=== PATIENT | female | born 1950 | race Caucasian/White ===

== ENCOUNTER 2020-05-25 07:07 | Inpatient (IN) ==
[2020-05-25 08:53] LABS: ABS Lymphocytes 0.9 10^3/ul (1.0-4.8); ABS Monocytes 0.3 10^3/ul (0-0.8); ABS Neutrophils 3.6 10^3/ul (1.5-7.7); Hematocrit 39 % (35-47); Lymphocyte % 18.9 %; Mean Corpuscular HGB Conc 33 g/dL (31-36); Mean Corpuscular Hemoglobin 32 pg (27-31); Mean Corpuscular Volume 95 fL (80-97); Mean Platelet Volume 7.7 fL (7.4-10.4); Nucleated Red Blood Cells % 0.1; Platelet Count 362 10^3/uL (150-450); Red Cell Distribution Width 14 % (10-15); White Blood Count 4.8 10^3/uL (3.5-10.8)
[2020-05-25] MEDS ORDERED: Albuterol HFA INHALER 8 gm MDI INH PRN (09:06)
[2020-05-25 09:10] LABS: Albumin 3.5 g/dL (3.2-5.2); Albumin/Globulin Ratio 1.2 (1-3); BUN/Creatinine Ratio 19.3 (8-20); C Reactive Protein 11.34 mg/L (<8.01); Calcium 8.3 mg/dL (8.6-10.3); EGFR Non-African American 105.8 (>60); Globulin 2.9 g/dL (2-4); Magnesium 1.9 mg/dL (1.9-2.7); Potassium 3.8 mmol/L (3.5-5.0); Total Bilirubin 0.3 mg/dL (0.2-1.0); Total Protein 6.4 g/dL (6.4-8.9)
[2020-05-25] MEDS ORDERED: Albuterol HFA INHALER 8 gm MDI INH SCH (10:00)
[2020-05-25] MEDS: Enoxaparin 40 MG/0.4 ML SYR SUBCUT SCH (12:10)
[2020-05-25] MEDS ORDERED: REMDESIVIR 200 MG IV ONE (14:30)
[2020-05-25] MEDS ORDERED: [UNRECOGNIZED DRUG - OTHER] IV ONE (14:30)
[2020-05-25] MEDS ORDERED: Benzocaine/Menthol LOZ PO PRN (18:20)
[2020-05-25] MEDS: Albuterol HFA INHALER 8 gm MDI INH PRN ×2 (18:46→21:32)
[2020-05-26 07:13] LABS: ABS Lymphocytes 1.6 10^3/ul (1.0-4.8); ABS Monocytes 0.9 10^3/ul (0-0.8); ABS Neutrophils 7.5 10^3/ul (1.5-7.7); Hematocrit 36 % (35-47); Hemoglobin 12.3 g/dL (12.0-16.0); Lymphocyte % 16.1 %; Mean Corpuscular HGB Conc 35 g/dL (31-36); Mean Corpuscular Hemoglobin 32 pg (27-31); Mean Corpuscular Volume 94 fL (80-97); Mean Platelet Volume 8.1 fL (7.4-10.4); Platelet Count 373 10^3/uL (150-450); Red Blood Count 3.81 10^6 /uL (3.70-4.87); Red Cell Distribution Width 14 % (10-15); White Blood Count 10.1 10^3/uL (3.5-10.8)
[2020-05-26 07:45] LABS: Albumin 3.3 g/dL (3.2-5.2); Calcium 8.3 mg/dL (8.6-10.3); Potassium 3.9 mmol/L (3.5-5.0); Total Bilirubin 0.4 mg/dL (0.2-1.0)
[2020-05-26 07:51] LABS: Albumin/Globulin Ratio 1.2 (1-3); BUN/Creatinine Ratio 20.7 (8-20); EGFR African American 125.5 (>60); EGFR Non-African American 103.7 (>60); Globulin 2.7 g/dL (2-4)
[2020-05-26] MEDS: Enoxaparin 40 MG/0.4 ML SYR SUBCUT SCH (09:47)
[2020-05-26] MEDS ORDERED: guaiFENesin/CODIENE 100mg/10mg 5 ML UDC PO PRN (10:18)
[2020-05-26] MEDS ORDERED: Iohexol 350 (CONTRAST) 500 ML MDV IV ONE (10:33)
[2020-05-26] MEDS ORDERED: Remdesivir 100 mg Vial 100 MG in NS 0.9% 250 ml 230 ML IV SCH ×2 (12:45→21:00)
[2020-05-26] MEDS ORDERED: Enoxaparin 40 MG/0.4 ML SYR SUBCUT ONE (14:19)
[2020-05-26] MEDS ORDERED: Enoxaparin 80 MG/0.8 ML SYR SUBCUT SCH ×2 (15:00→21:00)
[2020-05-26] MEDS ORDERED: Enoxaparin 40 MG/0.4 ML SYR SUBCUT SCH (22:00)
[2020-05-27] MEDS: Enoxaparin 80 MG/0.8 ML SYR SUBCUT SCH ×2 (02:19→16:01)
[2020-05-27 08:06] LABS: ABS Lymphocytes 2.3 10^3/ul (1.0-4.8); ABS Monocytes 1.3 10^3/ul (0-0.8); ABS Neutrophils 5.1 10^3/ul (1.5-7.7); Hematocrit 35 % (35-47); Hemoglobin 12.1 g/dL (12.0-16.0); Lymphocyte % 26.8 %; Mean Corpuscular HGB Conc 35 g/dL (31-36); Mean Corpuscular Hemoglobin 32 pg (27-31); Mean Corpuscular Volume 94 fL (80-97); Mean Platelet Volume 8.4 fL (7.4-10.4); Nucleated Red Blood Cells % 0.1; Platelet Count 372 10^3/uL (150-450); Red Blood Count 3.73 10^6 /uL (3.70-4.87); Red Cell Distribution Width 14 % (10-15); White Blood Count 8.6 10^3/uL (3.5-10.8)
[2020-05-27 08:24] LABS: Albumin 3.2 g/dL (3.2-5.2); Albumin/Globulin Ratio 1.1 (1-3); Calcium 8.5 mg/dL (8.6-10.3); EGFR Non-African American 101.7 (>60); Globulin 2.8 g/dL (2-4); Potassium 4.1 mmol/L (3.5-5.0); Total Bilirubin 0.3 mg/dL (0.2-1.0)
[2020-05-27 10:59] VITALS: BP 112/71
[2020-05-27] MEDS ORDERED: Enoxaparin 80 MG/0.8 ML SYR SUBCUT ONE (14:49)
== END 2020-05-27 16:00 | disposition home or self-care (01) | DRG 177 ==
LOC: ED 07:07 → MED 08:58
PROVIDERS: ADMIT Internal Medicine; ATTEND Pediatrics